=== PATIENT | female | born 1990 | race Caucasian/White ===

== ENCOUNTER 2024-12-23 07:40 | Outpatient (RCR) | payer MEDICAID, SELFPAY ==
[2024-12-16 12:55] VITALS: BP 138/74; PULSE 105; TEMP 37.3; O2SAT 99
--- NOTE | 2024-12-16 13:40 | PC.NURSE ---
1339: IV iron completed at this time without s&s of adverse reaction. IV d/c'd, pressure to site. Up to bathroom to void.
[2024-12-23 13:57] VITALS: BP 142/87; PULSE 88; TEMP 36.7; O2SAT 99
== END 2025-01-05 23:59 | disposition home or self-care (01) ==
LOC: INF 07:40
PROVIDERS: Visit Provider Nurse Practitioner Primary Care
DX: D50.9 Iron deficiency anemia, unspecified (principal)
CPT/HCPCS: 96365; Q0138

== ENCOUNTER 2024-12-28 13:08 | Emergency (ER) | payer MEDICAID, SELFPAY ==
[2024-12-28 13:13] VITALS: BP 137/80; PULSE 100; TEMP 37.6; O2SAT 99; BMI 26.6
--- NOTE | 2024-12-28 13:28 | CT_ITS ---
The [address] [address] Patient Name: EAMON READ MRN: [id number] date: 1990 Sex: F Assigned Patient Location: ER Current Patient Location: ER Accession/Order Number: [id number] Exam Date: 12/28/2024 14:39 Report Date: 12/28/2024 14:42 At the request of: GRAYSON CHAVEZ Procedure: CT abdomen pelvis w con CT ABDOMEN AND PELVIS WITH INTRAVENOUS CONTRAST: CLINICAL HISTORY: ruq and flank pain COMPARISON: None TECHNIQUE: Spiral images were obtained through the abdomen and pelvis following the administration of intravenous contrast. This CT exam was performed using one or more following dose reduction techniques: Automated exposure control, adjustment of the mA and/or kV according to patient size, or use of iterative reconstruction technique. FINDINGS: Lung Bases: [No acute process.] Organs:Gallbladder is contracted. Liver portal vein spleen pancreas adrenal glands left kidney and aorta appears unremarkable. Indeterminate hypodense lesion medial cortex right kidney 1.3 cm in greatest axial dimension.[ GI: Stomach is grossly unremarkable. Small bowel appears nondilated. A small bowel to small bowel intussusception is seen involving the left abdomen likely transient without evidence of obstruction. No acute colonic abnormality. Pelvis:[Uterus is grossly unremarkable. No adnexal mass. Urinary bladder is grossly unremarkable.] Peritoneum/Retroperitoneum:Trace free fluid within the pelvis. No free air or lymphadenopathy.[ Abd wall/Bones:Abdominal wall demonstrates no acute findings. Osseous structures demonstrate degenerative change.[ CT/CT abdomen pelvis w con IMPRESSION: No acute process. Indeterminate lesion medial cortex of the right kidney measuring 1.3 cm. Complete evaluation with renal CT or MRI is recommended. Presumed transient small bowel to small bowel intussusception without obstruction. Impression dictated by: Octaviano Mendes Jr., D.O. 12/28/2024 2:42 PM Dictation Location: [employer] Electronically authenticated by: [id number] Y Date: 12/28/2024 14:42
--- NOTE | 2024-12-28 13:30 | ED_ITS ---
HPI HPI - General Adult General Chief complaint: Abdominal Pain Stated complaint: R ABDOMINAL PAIN Time Seen by Provider: 12/28/24 13:10 Source: patient Mode of arrival: walk-in Limitations: no limitations History of Present Illness HPI narrative: Patient presents with 1 day history of upper abdominal and side pain bruising to her back. Worse with motion change position or deep breath. Patient denies any fever, chills, nausea, vomiting, ear pain, sore throat, cough, injury, trauma, dysuria, hematuria. Patient has surgical history of 3 C-sections and biopsy. Patient does have history of iron deficiency anemia and hep C which is currently treated and controlled. Patient had infusion last week for iron. Symptoms mild to moderate severity worse with touch or motion. MD complaint: abd pain Onset (ago): day(s) Location: Reports back and abdomen Severity: moderate Pain Consistency: Reports intermittent Exacerbating factors: Reports movement Associated symptoms: Reports denies other symptoms; Denies chest pain, cough, fever/chills, nausea/vomiting or shortness of breath Treatments prior to arrival: Reports none Related Data Home Medications ?Medication ?Instructions ?Recorded ?Confirmed glecaprevir 100 mg-pibrentasvir 40 tab PO 12/28/24 mg tablet (Mavyret) hydroxyzine pamoate 25 mg capsule mg 12/28/24 Previous Rx's ?Medication ?Instructions ?Recorded cephalexin 500 mg capsule 500 mg PO BID 7 days #14 cap s 12/28/24 Allergies Allergy/AdvReac Type Severity Reaction Status Date / Time No Known Drug Allergies Allergy Verified 12/28/24 13:16 Opioid HPI Opioid Management Most Recent Opioid Data: Last Pain Scale 7 Today, 13:20 Review of Systems ROS Status of ROS 10 or more systems reviewed and unremark able except as noted in history and below Constitutional Denies: fever or chills Ears, nose, mouth, and throat Denies: throat pain or ear pain Cardiovascular Denies: chest pain, edema or swelling of feet/ankles Respiratory Denies: shortness of breath or cough Gastrointestinal Reports: abdominal pain; Denies: nausea or vomiting Genitourinary Denies: painful urination, urinary frequency, urinary urgency or blood in urine Musculoskeletal Reports: back pain; Denies: extremity swelling Integumentary/Breast Denies: rash Neurological Denies: weakness in extremities Endocrine Reports: fatigue PFSH PFSH Social History Little interest or pleasure in doing things: not at all Feeling down, depressed, or hopeless: not at all Exam Constitutional Vital Signs, click to edit/add: Last Vital Signs Temp 99.6 F 12/28/24 13:13 Pulse 84 12/28/24 15:41 Resp 18 12/28/24 15:41 BP 122/70 12/28/24 15:41 Pulse Ox 99 12/28/24 15:41 O2 Del Method Room Air 12/28/24 15:41 Documenting provider has reviewed patient's vital signs: yes Common normals: no apparent distress and oriented x3 General appearance: cooperative Orientation/consciousness: Yes awake HENMT Common normals: normocephalic Nose: external nose normal External ear: external ears normal External auditory canal: EACs normal Tympanic membrane: TMs normal bilaterally Eye Common normals: PERRL, EOMs intact bilaterally and conjunctivae normal Neck & C-Spine Common normals: full ROM General: normal visual inspection Cervical spine: cervical ROM normal Respiratory Common normals: normal respiratory effort and clear to auscultation bilaterally Effort & inspection: able to speak in complete sentences Auscultation: clear to auscultation bilaterally Cardio Common normals: regular rate, regular rhythm, S1 normal heart sound and S2 normal heart sound Rate: regular rate GI Common normals: Normal to inspection, nondistended, normoactive bowel sounds present and soft to palpation (Right upper quadrant/flank tenderness) Auscultation: normoactive bowel sounds Palpation: soft Back & Pelvis Common normals: no CVA tenderness, thoracic and lumbar spine normal to inspection and thoraco-lumbar ROM normal Extremity Common normals: normal to inspection Neuro Common normals: oriented x3 Course Vital Signs Vital signs: Vital Signs Temperature 99.6 F 12/28/24 13:13 Pulse Rate 100 H 12/28/24 13:13 Respiratory Rate 18 12/28/24 13:13 Blood Pressure 137/80 12/28/24 13:13 Pulse Oximetry 99 12/28/24 13:13 Oxygen Delivery Method Room Air 12/28/24 13:13 Temperature 99.6 F 12/28/24 13:13 Pulse Rate 84 12/28/24 15:41 Respiratory Rate 18 12/28/24 15:41 Blood Pressure 122/70 12/28/24 15:41 Pulse Oximetry 99 12/28/24 15:41 Oxygen Delivery Method Room Air 12/28/24 15:41 Medical Decision Making MDM Narrative Medical decision making narrative: Patient has right-sided flank pain right upper quadrant pain will add CBC, CMP, lipase, urinalysis, IV contrasted CT scan abdomen pelvis. Discussed plan of care. She agrees with plan of care. Differential diagnose include not limited to abdominal pain, flank pain, kidney stone, pyelonephritis, gallbladder disease. Discussed with Dr. Grande she evaluated patient. Discussed with general surgeon/trauma surgeon Renzo Horne at [facility] we discussed patient's presentation, exam, CT, basic labs. Including white count of 11.5 we read him the report he states these are usually an incidental finding in the small bowel. Patient has no nauseousness/vomiting/abdominal pain. Patient amatory in emergency room. He recommends clear liquid diet follow-up . Will refer to primary care and general surgery. Patient lives closer to [facility] will re commend following up there. Discussed plan of care with patient at length including return to if any symptoms worsen including increasing abdominal pain rectal bleeding nausea vomiting abdominal distention. Patient is amatory emergency room no acute distress. Will disposition home with Keflex 500 mg twice daily for 7 days for possible UTI. Lab Data Labs: Lab Results 12/28/24 Range/Units 13:32 WBC 11.5 H (4.0-11.0) 10^3/uL RBC 4.27 (4.20-5.40) 10^6/uL Hgb 10.8 L (12.0-16.0) g/dL Hct 33.2 L (36.0-48.0) % MCV 77.8 L (81.0-99.0) fL MCH 25.3 L (26.7-34.0) pg MCHC 32.5 (29.9-35.2) g/dL RDW 21.6 H (11.0-15.0) % Plt Count 340 (150-450) 10^3/uL MPV 10.5 (9.5-13.5) fL Neut % (Auto) 73.2 (43.0-75.0) % Lymph % (Auto) 17.3 L (20.5-60.0) % [place] % (Auto) 8.3 (1.7-12.0) % Eos % (Auto) 0.6 L (0.9-7.0) % Baso % (Auto) 0.3 (0.2-2.0) % Neut # (Auto) 8.4 H (1.4-6.5) 10^3/uL Lymph # (Auto) 2.0 (1.2-3.8) 10^3/uL [place] # (Auto) 1.0 H (0.3-0.8) 10^3/uL Eos # (Auto) 0.1 (0.0-0.7) 10^3/uL Baso # (Auto) 0.0 (0.0-0.1) 10^3/uL Abs Immat Gran (auto) 0.03 (0.00-0.03) 10^3/uL Imm/Tot Granulo (auto) 0.3 (0.0-0.5) % Sodium 139 (136-145) mmol/L Potassium 3.8 (3.5-5.1) mmol/L Chloride 102 (98-107) mmol/L Carbon Dioxide 29.8 (21.0-32.0) mmol/L Anion Gap 11.0 BUN 11.0 (7.0-18.0) mg/dL Creatinine 0.74 (0.55-1.02) mg/dL Est GFR ( Amer) >60 (>=60 mL/min/1.73m^2) Est GFR (Non-Af Amer) >60 (>=60 mL/min/1.73m^2) BUN/Creatinine Ratio 14.9 Glucose 136 H (74-106) mg/dL Calcium 8.7 (8.5-10.1) mg/dL Total Bilirubin 0.2 (0.2-1.0) mg/dL AST 12 L (15-37) U/L ALT 19 (14-59) U/L Alkaline Phosphatase 75 (46-116) U/L Total Protein 7.1 (6.4-8.2) g/dL Albumin 3.3 L (3.4-5.0) g/dL Globulin 3.8 g/dL Albumin/Globulin Ratio 0.9 Lipase 44.0 (16.0-77.0) U/L Urine Color Lt. yellow (YELLOW) Urine Clarity Clear (CLEAR) Urine pH 7.5 (5.0-9.0) Ur Specific [place] 1.010 (1.005-1.025) Urine Protein Negative (NEG/TRACE) mg/dL Urine Glucose (UA) Negative (NEGATIVE) mg/dL Urine Ketones Negative (NEGATIVE) mg/dL Urine Occult Blood Moderate A (NEGATIVE) Urine Nitrite Negative (NEGATIVE) Urine Bilirubin Negative (NEGATIVE) Urine Urobilinogen 0.2 (0.2-1.0) EU/dL Ur Leukocyte Esterase Trace A (NEGATIVE) Urine RBC 2-5 A (0-2) #/HPF Urine WBC 5-10 A (NONE SEEN) #/HPF Ur Squamous Epith Cells Few A (NONE/RARE) #/LPF Urine Crystals Seen A (None Seen) #/HPF Amorphous Sediment Few Urine Bacteria Moderate A (NONE SEEN) #/HPF Urine Casts None seen (NONE SEEN) #/LPF Urine Mucus None seen (NONE SEEN) Ur [place]icated[place] [place] Discharge Chief Complaint: Abdominal Pain Clinical Impression: Abdominal pain, UTI (urinary tract infection), Small bowel intussusception Patient Disposition: Home, Self-Care Time of Disposition Decision: 16:21 Mode of Transportation: Private Vehicle Prescriptions / Home Meds: New cephalexin 500 mg capsule 500 mg PO BID 7 Days Qty: 14 0RF No Action hydroxyzine pamoate 25 mg capsule Mavyret 100-40 mg tablet PO Print Language: Frisian Instructions: Urinary Tract Infection in Women (DC), Abdominal Pain (ED) Additional Instructions: Clear liquid diet for 24 hours including water, Jell-O, popsicles, clear broth, Gatorade. Follow-up with primary care and [facility]. Return to ER if any symptoms worsen including increasing abdominal pain, nausea, vomiting, rectal bleeding. Referrals: [facility] [Other] - As soon as possible Physician,Non-Staff, [Primary Care Provider] - As soon as possible Discharge Date/Time: 12/28/24 16:37
[2024-12-28 13:44] LABS: Glucose Urine UA NEGATIVE (NEGATIVE)
[2024-12-28 13:45] LABS: Hematocrit 33.2 % (36.0-48.0); Hemoglobin 10.8 g/dL (12.0-16.0); Immature Granulocytes Abs Auto 0.03 10^3/uL (0.00-0.03); Immature Granulocytes Pct Auto 0.3 % (0.0-0.5); Lymphocytes Absolute Auto 2.0 10^3/uL (1.2-3.8); Mean Corpuscular HGB Conc 32.5 g/dL (29.9-35.2); Mean Corpuscular Hemoglobin 25.3 pg (26.7-34.0); Mean Corpuscular Volume 77.8 fL (81.0-99.0); Platelet Count 340 10^3/uL (150-450); Red Blood Count 4.27 10^6/uL (4.20-5.40); White Blood Count 11.5 10^3/uL (4.0-11.0)
[2024-12-28 13:53] LABS: Cast Seen? NONE SEEN #/LPF (NONE SEEN); Crystals Seen? Seen #/HPF (None Seen)
[2024-12-28 13:54] LABS: Urine Culture Indicated YES-FRMC
[2024-12-28 14:01] LABS: Alanine Aminotransferase 19 U/L (14-59); Albumin Globulin Ratio 0.9; Albumin Level 3.3 g/dL (3.4-5.0); Alkaline Phosphatase 75 U/L (46-116); Anion Gap 11.0; Aspartate Amino Transferase 12 U/L (15-37); Blood Urea Nitrogen 11.0 mg/dL (7.0-18.0); Calcium 8.7 mg/dL (8.5-10.1); Carbon Dioxide 29.8 mmol/L (21.0-32.0); Chloride 102 mmol/L (98-107); Estimated GFR (African America >60 (>=60 mL/min/1.73m^2); Estimated GFR (Non-African Ame >60 (>=60 mL/min/1.73m^2); Globulin 3.8 g/dL; Glucose 136 mg/dL (74-106); Lipase 44.0 U/L (16.0-77.0); Potassium 3.8 mmol/L (3.5-5.1); Sodium 139 mmol/L (136-145); Total Protein 7.1 g/dL (6.4-8.2)
[2024-12-28 15:41] VITALS: BP 122/70; PULSE 84; O2SAT 99
== END 2024-12-28 16:37 | disposition home or self-care (01) ==
PROVIDERS: Physician Assistant; Emergency Provider Emergency Medicine
DX: R10.10 Upper abdominal pain, unspecified (principal); N39.0 Urinary tract infection, site not specified; D50.9 Iron deficiency anemia, unspecified; B19.20 Unspecified viral hepatitis C without hepatic coma; K56.1 Intussusception
CPT/HCPCS: 36415; 74177; 80053; 81001; 83690; 85025; 87086; 87088; 87186; 99285; Q9967